=== PATIENT | male | born 1970 | race Caucasian/White ===

== ENCOUNTER 2017-01-12 19:44 | Emergency (ER) | payer BC ==
[~2017-01-12] VITALS: Ht 177.8 cm; Wt 76.5 kg
[2017-01-12 19:47] VITALS: Ht 177.8 cm; Wt 76.5 kg
[2017-01-12] MEDS ORDERED: morphine 4 MG/ML VIAL IV STA (21:06)
[2017-01-12] MEDS ORDERED: ONDANSETRON 4 MG INJ IV STA (21:06)
[2017-01-12 21:28] LABS: BASOPHILS % 0.3 % (0.0-2.0); EOSINOPHILS # 0.1 10^3/ul (0.0-0.5); EOSINOPHILS % 0.7 % (0.0-7.0); HEMATOCRIT 40.1 % (42.0-52.0); HEMOGLOBIN 13.9 g/dl (14.0-18.0); LYMPHOCYTES # 2.7 10^3/ul (0.8-2.9); LYMPHOCYTES % 35.7 % (15.0-51.0); MEAN CORPUSCULAR HEMOGLOBIN 28.3 pg (29.0-33.0); MEAN CORPUSCULAR HGB CONC 34.7 g/dl (32.0-37.0); MEAN CORPUSCULAR VOLUME 81.7 fl (82.0-101.0); MEAN PLATELET VOLUME 10.6 fl (7.4-10.4); MONOCYTE # 0.6 10^3/ul (0.3-0.9); MONOCYTES % 8.3 % (0.0-11.0); NEUTROPHIL # 4.1 10^3/ul (1.6-7.5); NEUTROPHILS % 54.7 % (39.0-77.0); PLATELET COUNT 323 10^3/UL (140-415); RED BLOOD COUNT 4.91 10^6/ul (4.70-6.10); RED CELL DISTRIBUTION WIDTH 12.1 % (11.5-14.5); WHITE BLOOD COUNT 7.5 10^3/ul (4.8-10.8)
[2017-01-12] MEDS ORDERED: SOD CHLORIDE 0.9% 1,000 ML IV ONE ×2 (21:30→22:30)
[2017-01-12 21:39] LABS: ADD UMIC NO; UR ASCORBIC ACID NEGATIVE (NEGATIVE); UR BILIRUBIN (Dip) NEGATIVE (NEGATIVE); UR BLOOD (Dip) NEGATIVE (NEGATIVE); UR CLARITY CLEAR (CLEAR); UR COLOR COLORLESS (YELLOW); UR GLUCOSE (Dip) 3+ mg/dL (NEGATIVE); UR KETONES (Dip) NEGATIVE (NEGATIVE); UR LEUKOCYTE ESTERASE (Dip) NEGATIVE Leu/ul (NEGATIVE); UR NITRITE (Dip) NEGATIVE (NEGATIVE); UR SPECIFIC GRAVITY (Dip) 1.028 (1.003-1.030); UR TOTAL PROTEIN (Dip) NEGATIVE (NEGATIVE); UR UROBILINOGEN (Dip) NEGATIVE (NEGATIVE)
--- NOTE | 2017-01-12 21:48 | ERD ---
ER Documentation Chief Complaint Date/Time DATE: 01/12/17 TIME: 21:42 Chief Complaint LLQ abd pain x 2 weeks HPI This is a 46-year-old male who presents the emergency department today after being referred by [facility] physician for elevated blood sugars and low sodium levels. Also indicated he has had left-sided abdominal pain for the past couple of days. Denies any fever, vomiting or diarrhea. States he has had some urinary discomfort. ROS All systems reviewed and are negative except as per history of present illness. Medications Home Meds Active Scripts Acetaminophen* (Tylophen*) 500 Mg Capsule, 1 CAP PO Q6H Y for PAIN AND OR ELEVATED TEMP, #30 CAP Prov:BEBETO CACERES PA-C 01/13/17 Naproxen* (Naprosyn*) 500 Mg Tablet, 500 MG PO BID Y for PAIN AND/OR INFLAMMATION, #30 TAB Prov:BEBETO CACERES PA-C 01/13/17 Allergies Allergies: Coded Allergies: No Known Allergy (Unverified , 01/12/17) PMhx/Soc Medical and Surgical Hx: pt denies Surgical Hx History of Surgery: No Anesthesia Reaction: No Hx Neurological Disorder: No Hx Respiratory Disorders: No Hx Cardiac Disorders: No Hx Psychiatric Problems: No Hx Miscellaneous Medical Probl: Yes (IDDM) Hx Alcohol Use: Yes (Social) Hx Substance Use: No Hx Tobacco Use: Yes (Social) Smoking Status: Current some day smoker Physical Exam Vitals Vital Signs Date Time Temp Pulse Resp B/P Pulse Ox O2 Delivery O2 Flow Rate FiO2 01/13/17 00:20 98.3 77 18 128/80 99 Room Air 01/12/17 19:47 97.9 115 20 132/75 99 Physical Exam Const: NAD Head: Atraumatic Eyes: Normal Conjunctiva ENT: Normal External Ears, Nose and Mouth. Neck: Full range of motion..~ No meningismus. Resp: Clear to auscultation bilaterally Cardio: Regular rate and rhythm, no murmurs Abd: Soft left lower quadrant tenderness, non distended. Normal bowel sounds. Right lower quadrant pain. No right upper quadrant pain. No tenderness at McBurney's. Skin: No petechiae or rashes Back: No midline or flank tenderness Ext: No cyanosis, or edema Neur: Awake and alert Psych: Normal Mood and Affect Result Diagram: 01/12/17211701/12/172117 Results 24 hrs Laboratory Tests Test 01/12/17 21:00 01/12/17 21:14 01/12/17 21:18 01/12/17 21:56 Urine Color COLORLESS Urine Clarity CLEAR Urine pH 6.0 Urine Specific [place] 1.028 Urine Ketones NEGATIVEmg/dL Urine Nitrite NEGATIVEmg/dL Urine Bilirubin NEGATIVEmg/dL Urine Urobilinogen NEGATIVEmg/dL Urine Leukocyte Esterase NEGATIVELeu/ul Urine Hemoglobin NEGATIVEmg/dL Urine Glucose 3+mg/dL Urine Total Protein NEGATIVEmg/dl Bedside Glucose 548mg/dL 426mg/dL White Blood Count 7.510^3/ul Red Blood Count 4.9110^6/ul Hemoglobin 13.9g/dl Hematocrit 40.1% Mean Corpuscular Volume 81.7fl Mean Corpuscular Hemoglobin 28.3pg Mean Corpuscular Hemoglobin Concent 34.7g/dl Red Cell Distribution Width 12.1% Platelet Count 85991^3/UL Mean Platelet Volume 10.6fl Neutrophils % 54.7% Lymphocytes % 35.7% Monocytes % 8.3% Eosinophils % 0.7% Basophils % 0.3% Nucleated Red Blood Cells % 0.0/100WBC Neutrophils # 4.110^3/ul Lymphocytes # 2.710^3/ul Monocytes # 0.610^3/ul Eosinophils # 0.110^3/ul Basophils # 0.010^3/ul Nucleated Red Blood Cells # 0.010^3/ul Sodium Level 130mmol/L Potassium Level 4.2mmol/L Chloride Level 93mmol/L Carbon Dioxide Level 29mmol/L Anion Gap 12 Blood Urea Nitrogen 19mg/dl Creatinine 0.93mg/dl Glucose Level 549mg/dl Calcium Level 8.8mg/dl Total Bilirubin 0.2mg/dl Direct Bilirubin 0.00mg/dl Indirect Bilirubin 0.2mg/dl Aspartate Amino Transf (AST/SGOT) 14IU/L Alanine Aminotransferase (ALT/SGPT) 41IU/L Alkaline Phosphatase 57IU/L Total Protein 6.5g/dl Albumin 4.0g/dl Globulin 2.50g/dl Albumin/Globulin Ratio 1.60 Lipase 96U/L Test 01/13/17 00:05 Bedside Glucose 178mg/dL Current Medications Medications (Trade) Dose Ordered Sig/Bailey Route PRN Reason Start Time Stop Time Status Last Admin Dose Admin Morphine Sulfate (morphine) 4 mg ONCE STAT IV 01/12/17 21:06 01/12/17 21:08 DC 01/12/17 21:15 Ondansetron HCl 4 mg 4 mg ONCE STAT IV 01/12/17 21:06 01/12/17 21:08 DC 01/12/17 21:15 Sodium Chloride (NS) 1,000 ml @ 1,000 mls/hr Q1H ONCE IV 01/12/17 21:30 01/12/17 22:29 DC 01/12/17 21:16 Insulin Human Regular (Humulin R) 12 unit ONCE ONCE SC 01/12/17 22:00 01/12/17 22:03 DC Insulin Human Regular 10 unit 10 unit ONCE ONCE SC 01/12/17 22:00 01/12/17 22:03 DC 01/12/17 22:07 Sodium Chloride (NS) 1,000 ml @ 1,000 mls/hr Q1H ONCE IV 01/12/17 22:30 01/12/17 23:29 DC 01/12/17 22:08 Ketorolac Tromethamine (Toradol) 30 mg ONCE STAT IV 01/12/17 22:46 01/12/17 22:47 DC 01/12/17 22:54 DIAGNOSTIC IMAGING REPORT Patient: MERY PENNY : 1970 Age: 46 Sex: M MR #: [id number] DOS: 01/12/172105 Ordering MD: BEBETO CACERES PA-C Location: [facility] Room/Bed: PROCEDURE: CT abdomen and pelvis without intravenous contrast. CLINICAL INDICATION: Pain. TECHNIQUE: CT of the abdomen/pelvis was performed utilizing axial images with reconstructions in sagittal and coronal planes. The administered radiation dose is CTDI 9.7 mGy, DLP 639 mGy-cm. One or more of the following dose reduction techniques were used: automated exposure control, adjustment of the mA and/or kV according to patient size and/or use of iterative reconstruction technique. COMPARISON: No pertinent prior examinations were submitted for comparison. FINDINGS: Visualized Chest: Mild bilateral gynecomastia is noted. Coronary artery calcifications are noted. Abdomen: The liver, spleen, pancreas, gallbladder,and adrenal glands are unremarkable. The kidneys are without hydronephrosis. No definite urinary calculi are seen. There is no evidence of bowel obstruction. The appendix is normal. No intra- abdominal free air is seen. There is no evidence of intra-abdominal adenopathy or free fluid. Pelvis: There is no evidence of pelvic adenopathy or free fluid. The prostate and bladder are unremarkable. Osseous structures: Unremarkable. IMPRESSION: No acute findings. RPTAT: HIKT .Ryne Cummings MD, MD Date Time Electronically viewed and signed by .Ryne Cummings MD, on 01/12/2017 23:24 .T/ CC: BEBETO CACERES PA-C Procedures/MDM This 46-year-old male medical history of diabetes on insulin who presents the emergency department today for further evaluation after being referred by his primary care doctor Dr. Kenan Fowler for elevated blood sugars and low sodium levels. An Accu-Chek was obtained that showed blood sugar of 548. Patient was immediately given IV fluids. Laboratory workup shows no elevated white blood cell count. His hemoglobin is very mildly decreased. Platelets are within normal limits. Sodium was decreased at 130. Glucose was elevated at 548 then down to 426 and 178 prior to discharge. Carb is within normal limits. He is not in DKA. Liver enzymes are within normal limits. Lipase is within normal limits. UA 3+ glucose otherwise negative for infection or ketones CT abdomen pelvis noncontrast shows no acute findings. There is no evidence of pelvic adenopathy or free fluid. Prostate and bladder are unremarkable. There is no evidence of bowel obstruction. Appendix is normal. There are no definite urinary calculi seen. The kidneys are without hydronephrosis. There is no intra-abdominal free air. Symptoms at this time is consistent with abdominal pain of uncertain etiology hyperglycemia. Low suspicion for acute surgical abdomen. Patient is not in DKA. I had a long discussion about the patient as being told that he needed to be admitted to the hospital to "control his blood sugar". I discussed the patient with Dr. Banks twice and he does not feel the patient needs to be admitted at this time. Patient may take the regular home insulin. Upon further questioning of the patient he also has a prescription for metformin but does not take it and is noncompliant with his medication as he "forgets to take it". States his doctor does not know that he does not take all of his medication. I encouraged the patient to take his medications as prescribed and to keep a log of his blood sugars. Patient indicated that he would do that and agreed to the plan. Patient was given 2 L of IV fluids and 10 units of subcu regular insulin. Also given Zofran and morphine for pain and pain improved. Patient was given a prescription for Naprosyn and Tylenol for home. He was instructed to take his regular diabetes medication as prescribed. At this time patient is stable for discharge and outpatient management. He may follow-up with his primary care physician in 1-2 days. Patient understood and agreed with the plan. Departure Diagnosis: Primary Impression: Abdominal pain Abdominal location: left lower quadrant Qualified Code: R10.32 - Left lower quadrant pain Additional Impression: Hyperglycemia Condition: BEBETO Avila PA-C Jan 12, 2017 21:48
[2017-01-12 21:51] LABS: ALBUMIN/GLOBULIN RATIO 1.6; BILIRUBIN,INDIRECT 0.2 mg/dl (0-1.1); BILIRUBIN,TOTAL 0.2 mg/dl (0.2-1.3); CALCIUM 8.8 mg/dl (8.4-10.2); CREATININE 0.93 mg/dl (0.61-1.24); POTASSIUM 4.2 mmol/L (3.5-5.1); TOTAL PROTEIN 6.5 g/dl (6.1-8.1)
[2017-01-12] MEDS ORDERED: INSULIN REGULAR, HUMAN 100 UNIT/1 ML 3ML VIAL SC ONE ×2 (22:00)
[2017-01-12] MEDS ORDERED: KETOROLAC 30 MG INJ IV STA (22:46)
--- NOTE | 2017-01-12 23:24 | RADRPT ---
PROCEDURE: CT abdomen and pelvis without intravenous contrast. CLINICAL INDICATION: Pain. TECHNIQUE: CT of the abdomen/pelvis was performed utilizing axial images with reconstructions in s agittal and coronal planes. The administered radiation dose is CTDI 9.7 mGy, DLP 639 mGy-cm. One or more of the following dose reduction techniques were used: automated exposure control, adjustment of the mA and/or kV according to patient size and/or use of iterative reconstruction technique. COMPARISON: No pertinent prior examinations were submitted for comparison. FINDINGS: Visualized Chest: Mild bilateral gynecomastia is noted. Coronary artery calcifications are noted. Abdomen: The liver, spleen, pancreas, gallbladder,and adrenal glands are unremarkable. The kidneys are without hydronephrosis. No definite urinary calculi are seen. There is no evidence of bowel obstruction. The appendix is normal. No intra-abdominal free air is seen. There is no evidence of intra-abdominal adenopathy or free fluid. Pelvis: There is no evidence of pelvic adenopathy or free fluid. The prostate and bladder are unremarkable. Osseous structures: Unremarkable. IMPRESSION: No acute findings. RPTAT: HIKT .Ryne Cummings MD, MD Date Time Electronically viewed and signed by .Ryne Cummings MD, on 01/12/2017 23:24 .T/
[2017-01-13 00:20] VITALS: BP 128/80; PULSE 77; RESP 18; TEMP 98.3
[2017-01-13] MEDS ORDERED: NAPR-260 PO (00:24)
[2017-01-13] MEDS ORDERED: ACET500C5 PO (00:25)
== END 2017-01-13 00:31 | disposition home or self-care (01) ==
LOC: FTE 19:44
DX: E11.65 Type 2 diabetes mellitus with hyperglycemia (principal); F17.210 Nicotine dependence, cigarettes, uncomplicated
CPT/HCPCS: 36415; 74176; 80053; 81003; 82962; 83690; 85025; 96372; 96374; 96375; J1815; J1885; J2270; J2405; J7030; Z7502

== ENCOUNTER 2017-09-24 14:41 | Inpatient (IN) | END 2017-10-01 13:55 | disposition home or self-care (01) | DRG 453 ==

== ENCOUNTER 2017-10-06 04:31 | Emergency (ER) | END 2017-10-06 05:21 | disposition home or self-care (01) ==

== ENCOUNTER 2017-10-14 14:20 | Emergency (ER) | END 2017-10-14 15:18 | disposition home or self-care (01) ==

== ENCOUNTER 2017-12-05 16:31 | Emergency (ER) | END 2017-12-05 18:35 | disposition left against medical advice (07) ==